=== PATIENT | male | born 1990 | race Caucasian/White ===

== ENCOUNTER 2021-06-01 06:26 | Emergency (ER) | payer BC ==
[~2021-06-01] VITALS: Ht 182.9 cm; Wt 113.6 kg
[2021-06-01] MEDS ORDERED: OXYC20TA2 PO (06:43)
[2021-06-01] MEDS ORDERED: GABA-283 PO (06:44)
[2021-06-01] MEDS ORDERED: ZANA4CAP PO (06:45)
[2021-06-01] MEDS ORDERED: PROMETHAZINE INJ 25 MG/ML VIAL (J2550) IV ONE (07:40)
[2021-06-01] MEDS: MORPHINE 4 MG/ML 1ML VIAL/SYRINGE (J2270) IV PRN ×2 (08:04→09:14)
[2021-06-01 08:20] LABS: BASO % 0.2 % (0.0-1.0); EOS % 0.2 % (0.0-3.0); HEMOGLOBIN 13.9 g/dl (13.5-17.5); LYMPH # 1.7 10^3/uL (1.5-5.0); LYMPH % 18.5 % (24.0-44.0); MEAN CORPUSCULAR HEMOGLOBIN 28.3 pg (27.0-33.0); MEAN CORPUSCULAR HGB CONC 33.1 g/dl (32.0-36.5); MEAN CORPUSCULAR VOLUME 85.5 fl (80.0-96.0); MONO # 0.4 10^3/uL (0.0-0.8); MONO % 4.3 % (2.0-8.0); NEUTROPHILS # 6.9 10^3/uL (1.5-8.5); NEUTROPHILS % 76.6 % (36.0-66.0); PLATELET COUNT, AUTOMATED 190 10^3/uL (150-450); RED BLOOD COUNT 4.91 10^6/uL (4.30-6.10); WHITE BLOOD COUNT 9.1 10^3/uL (4.0-10.0)
[2021-06-01 08:52] LABS: ALBUMIN 4.4 GM/DL (3.2-5.2); BILIRUBIN,DIRECT 0.1 MG/DL (0.0-0.2); BILIRUBIN,TOTAL 0.4 MG/DL (0.2-1.0); TOTAL PROTEIN 7.8 GM/DL (6.4-8.2)
[2021-06-01] MEDS ORDERED: SUCRALFATE 1 GM TAB PO ONE (09:00)
[2021-06-01] MEDS ORDERED: PANTOPRAZOLE 40MG VIAL (C9113 PER 1) IV ONE (09:00)
[2021-06-01] MEDS ORDERED: GI COCKTAIL 50ML BTL(HYOSCYAMINE/MAALOX/LIDOCAINE VISCOUS)(1:3:1) PO ONE (09:00)
[2021-06-01] MEDS ORDERED: ISOVUE-370 76% 100ML VIAL As Ordered ONE (09:04)
[2021-06-01] MEDS ORDERED: FAMOTIDINE 20 MG TAB PO ONE (09:15)
[2021-06-01] MEDS ORDERED: FAMOTIDINE IV BAG 20 MG in IV 1 EA IV ONE (10:00)
[2021-06-01 10:04] LABS: CK-MB VALUE MASS < 1.0 NG/ML (<3.6); CPK CREATINE PHOSPHOKINASE 70 U/L (39-308); MB/CK RELATIVE INDEX 1.43 (< OR =4)
[2021-06-01 10:15] VITALS: BP 100/53
[2021-06-01] MEDS ORDERED: CARA1TAB6 PO (10:26)
== END 2021-06-01 10:40 | disposition home or self-care (01) ==
LOC: M ED 06:26
DX: R10.13 Epigastric pain (principal); I47.1 Supraventricular tachycardia; Z87.19 Personal history of other diseases of the digestive system; Z79.899 Other long term (current) drug therapy
CPT/HCPCS: 80047; 80076; 82550; 82553; 83690; 84484; 85025; 93005; 96374; 96375; 99284; C9113; J2270